=== PATIENT | male | born 1970 | race Caucasian/White ===

== ENCOUNTER 2023-11-26 10:42 | Emergency (ER) | payer OTHER, SELFPAY ==
--- NOTE | ~2023-11-26 | XR_ITS ---
EXAMINATION: XR elbow LT min 3V DATE: 11/26/2023 11:11 INDICATION: Left elbow pain, initial encounter TECHNIQUE: Anteroposterior, two oblique and lateral views of the left elbow were obtained. COMPARISON: None. FINDINGS: There is an acute, displaced fracture involving the lateral condyle of the distal humerus. The fracture fragment is rotated anteriorly. No additional fracture is identified. There is an elbow joint effusion IMPRESSION: 1. Displaced and rotated lateral condyle fracture of the distal humerus with elbow joint effusion. Reviewed, dictated and finalized at location B. GOODS PRESS HAND IMPRESSION: 1. Displaced and rotated lateral condyle fracture of the distal humerus with el bow joint effusion.
--- NOTE | ~2023-11-26 | XR_ITS ---
EXAMINATION: XR forearm LT 2V INDICATION: Left forearm pain TECHNIQUE: Two views of the left forearm are obtained on three radiographs. COMPARISON: None available FINDINGS: There is a displaced and rotated lateral condyle fracture of the distal humerus. No additio nal fracture is identified. There is soft tissue swelling of the elbow. IMPRESSION: 1. No acute fracture of the radius or ulna. 2. Displaced and rotated lateral condyle fracture at the distal humerus. Reviewed, dictated and finalized at location B. K CASHIER
--- NOTE | 2023-11-26 10:43 | ED.UPPEXIN ---
HPI - Extremity Injury (Upper) General Chief Complaint: Extremity Injury, Upper Stated Complaint: Injured left arm Time Seen by Provider: 11/26/23 10:43 Source: patient Mode of arrival: ambulatory Limitations: no limitations History of Present Illness HPI narrative: Patient is a 53-year-old male who presents with left forearm and elbow pain after falling down steps yesterday. Denies any bruising or obvious swelling but is painful to move in all directions. Denies any numbness, tingling weakness to hand. Denies hitting head on fall. Has been using ice, elevating, topical pain relief and Tylenol and ibuprofen. Related Data Allergies Allergy/AdvReac Type Severity Reaction Status Date / Time nickel Allergy Mild Rash Verified 11/26/23 10:53 Review of Systems Review of Systems: All systems reviewed & are unremarkable except as noted in HPI and below Constitutional: Constitutional: Denies body ache(s), Denies chills, Denies fatigue, Denies fever(s), Denies headache(s), Denies malaise and Denies weakness Eyes: Eyes: Denies blurry vision, Denies irritation and Denies loss of vision ENT: Denies otalgia, Denies headache(s), Denies nasal discharge, Denies sinus pain and Denies sore throat Cardiovascular: Cardiovascular: Denies chest pain, Denies irregular heart rhythm and Denies dyspnea Respiratory: Respiratory: Denies dyspnea Gastrointestinal: Gastrointestinal: Denies abdominal pain, Denies melena, Denies hematochezia, Denies diarrhea, Denies nausea and Denies vomiting Musculoskeletal: Musculoskeletal: Denies back pain, Denies myalgias and Reports arthralgias Integumentary/Breasts: Skin/Breast: Denies pruritus and Denies rash Neurologic: Denies headache(s), Denies loss of vision and Denies weakness Psychiatric: Psychiatric: Reports no additional psychiatric complaints Endocrine: Endocrine: Denies fatigue PMFSH Comments At time of signature, agree with nursing past medical, surgical, social and family history. There is no relevant family history pertinent to the presenting complaint. Exam Const: General: cooperative, healthy appearing, comfortable, no acute distress and well nourished Nutritional Appearance: well nourished Orientation/consciousness: patient oriented x3 Limitations: no limitations HENMT: Head: normal to inspection, normocephalic and atraumatic Ears: hearing grossly normal bilaterally and external ears normal Face/Nose/Sinus: Normal external nose present, normal facial exam and face symmetric Face and sinus: normal facial exam and face symmetric Mouth: Yes lip normal Eyes: General: appearance normal, both eyes and all related structures Alignment and Position: alignment normal and position normal Periorbital: periorbital findings normal Eyelids: eyelids normal Pupils: Equal, round and reactive pupils present EOM: EOMs intact bilaterally Neck: Neck: normal visual inspection, full ROM and supple Chest: Chest palpation & inspection: normal inspection of the chest Resp: Effort & Inspection: normal respiratory effort and able to speak in complete sentences Auscultation: clear to auscultation bilaterally Cardio: Rate: regular rate Rhythm: regular rhythm Heart sounds: S1 normal heart sound present and S2 normal heart sound present GI: Inspection: normal to inspection Skin: General skin exam: normal color and no rashes or lesions noted Neuro: General: patient oriented x3 and moves all extremities Cranial nerves: Yes Equal, round and reactive pupils present Speech: normal speech Gait exam (Neuro): Normal gait present Extrem: General: normal to inspection, full ROM and no edema Left upper extremity: shoulder/upper arm inspection abnormal and normal ROM; no tenderness and no swelling, elbow/forearm tenderness of the lateral epicondyle with resisted supination and with resisted pronation, abnormal ROM pain with active ROM with extension, with flexion, with pronation and with supination and distal pulses i
[2023-11-26 10:56] VITALS: BP 141/95; PULSE 83; RESP 16; TEMP 36.9; O2SAT 99
== END 2023-11-26 12:16 | disposition home or self-care (01) ==
PROVIDERS: Emergency Provider Nurse Practitioner Family
DX: S42.452A Displaced fracture of lateral condyle of left humerus, initial encounter for closed fracture (principal); W10.9XXA Fall (on) (from) unspecified stairs and steps, initial encounter
CPT/HCPCS: 29105; 73080; 73090; 99214; A4565; G0463

== ENCOUNTER 2023-12-02 00:49 | Day surgery (SDC) | payer OTHER, SELFPAY ==
[2023-11-30 09:36] VITALS: BMI 44.9
--- NOTE | 2023-11-30 09:43 | PC.NURSE ---
Report to the Outpatient Waiting Room, entrance under the green pavilion located off [facility], at time 0600 on date 12/02/23. Planned Procedure Time: 0730. Time changes happen often and if your time is changed the preop area will call you the afternoon before. - You and your visitor will be asked to self-screen and do not enter if you have any COVID symptoms. - A mask is optional within the hospital at this time. Patients may have clear liquids (water, carbonated beverages, clear teas, apple juice) until 3 hours prior to surgery with a maximum of 20 ounces. - No food from midnight until time of surgery Take the following medications with a SIP of water the morning of surgery: OXYCODONE DO NOT STOP ANY OF YOUR OTHER PRESCRIPTION MEDICATIONS PRIOR TO SURGERY ?EXCEPT THE FOLLOWING Medications to discontinue per physician: IBUPROFEN Date to take last dose: PER DR. ANN Please no make-up, nail mongolian, hairspray, perfume, deodorant, or body powder the day of surgery. No jewelry (including any body piercings) or valuables the day of surgery, leave them at home. Please take a shower or bath the night before, or the morning of, surgery with an antibacterial soap. Wear comfortable, loose fitting clothing. - Jewelry must be removed prior to entering the operating room. Rings and piercings that are not removed may be cut off. - The hospital will not accept responsibility for valuables. - Please leave all valuables, including medications, at home the day of surgery. If you are going home after surgery, a licensed concrete truck driver must drive you home. - NO public transportation without another adult if you receive anesthesia. - We recommend that an adult stay with you for 24 hours following discharge. - We also recommend that you do not drive, make important decision, drink alcoholic beverages, or take any drugs that were not prescribed by your health care provider for at least 24 hours after your discharge time. Follow any additional instructions given to you from your surgeon. If you or anyone in your household have experienced Covid symptoms in the past week, please notify your surgeon or the nurse liaison at the phone number below for possible testing. Telephone instructions given to PT Kassandra SHARIF and asked if any additional questions and then verbalized understanding. Patient advised to call surgeon office or pre surgery nurse liaison [phone] if any additional questions.
--- NOTE | 2023-12-01 10:31 | P.PNAN_ITS ---
Anes - Initial Pre Proc Eval Procedure: Operation Date: 12/02/23 07:30 Proposed Procedures p Open Reduction Internal Fixation Left Elbow Fracture - Jay Masters MD Date/Time: 12/01/23 10:31 Surgeon: Jay Masters MD Pre Op Diagnosis: left displaced and rotated condyle fx distal humer Patient Data Age: 53 Gender: M Height: 1.88 m Weight: 158.8 kg Allergies Allergy/AdvReac Type Severity Reaction Status Date / Time nickel Allergy Mild Rash Verified 11/30/23 09:35 Home Medications Medication Instructions Recorded Confirmed Type oxycodone 5 mg capsule 5 mg PO Q6H PRN pain #20 caps 11/29/23 11/30/23 Rx ibuprofen 600 mg tablet 600 mg PO QID PRN Pain 11/30/23 11/30/23 History Patient hx anesthesia problems: none Family hx anesthesia problems: none Results Review: All pre-operative results and documents have been reviewed as part of the pre- operative evaluation. 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 Informed Consent: The patient's anesthetic plan and its attendant risks and benefits were discussed with the patient/family/POA. Questions were solicited and answers provided to the satisfaction of the patient/family/POA.
[2023-12-02] VITALS (12 sets, daily range): BP systolic 124–160; BP diastolic 70–102; PULSE 79–91; RESP 12–20; TEMP 36.6–37.2; O2SAT 92–98
--- NOTE | ~2023-12-02 | XR_ITS ---
EXAMINATION: XR surgery orthopedic DATE: 12/02/2023 09:13 INDICATION: Fracture of capitellum of left humerus. TECHNIQUE: 7 intraoperative fluoroscopic views of the left elbow were obtained. I was not present. Fl uoroscopy exposure time was 13 seconds. COMPARISON: Left elbow radiographs 11/26/2023 FINDINGS: There is a fracture of capitellum of distal humerus in near-anatomic alignment status post open reduction internal fixation with 3 headless screws. IMPRESSION: 1. Fracture of capitellum of distal humerus in near-anatomic alignment status post open reduction int ernal fixation. Reviewed, dictated and finalized at location A. ERIOLOGIST FOOD IMPRESSION: 1. Fracture of capitellum of distal humerus in near-anatomic alignment status p ost open reduction internal fixation.
[2023-12-02] MEDS: KETOROLAC 15 MG/ML VIAL (*BKC) IV PUSH (06:45)
[2023-12-02] MEDS: ACETAMINOPHEN 500 MG TABLET 1000 MG PO (06:45)
[2023-12-02] MEDS: LACTATED RINGERS 1,000 ML 30 ML IV CONT (06:45)
--- NOTE | 2023-12-02 07:09 | WPDHPUPDATE1 ---
History and Physical Update Update Date/Time: 12/02/23 07:09 History and Physical has been reviewed, including an updated exam of the patient. There are NO changes in the patient's condition. Risks, benefits, and alternatives have been discussed and questions answered. Patient agrees to proceed with procedure.
[2023-12-02] MEDS: ceFAZolin 3 GM/D5W 100 ML 100 ML IVPB (07:29)
[2023-12-02] MEDS: BUPivacaine HCL 0.5% 10 ML AMP 30 ML INFILTRATE (08:07)
--- NOTE | 2023-12-02 10:06 | P.OP_ITS ---
Procedure Note - Detailed Date of Procedure 12/02/23 Pre-op Diagnosis left displaced and rotated condyle fx distal humer Post-op Diagnosis Same Procedure Performed Open reduction internal fixation left distal humerus capitellum fracture Surgeon Jay Masters MD Traffic Analysis Technician 1st delivery assistant Anesthesia General Indications gentleman fell on his left and sustained a left elbow capitellar fracture. Displacement rotation fracture noted. Fracture is intra-articular. Desires Operative treatment. Description of Procedure Patient identified in the preoperative holding. Informed consent given. Operative extremity marked. Patient received intravenous antibiotics. Patient brought to the operating room where underwent general anesthetic by anesthesia team. Positioned supine on operating room table. Time-out performed confirming the patient, site of the surgery and the plan. left arm prepped and draped usual sterile surgical fashion using a ChloraPrep skin solution. Hand and arm exsanguinated tourniquet inflated to 250 mmHg. Local anesthetic with 0.5% Marcaine to the left lateral elbow. Oblique incision made over the radiocapitellar joint with a 15 blade knife. Hemostasis controlled electrocautery. Fascia was then incised in line with skin incision. The fascia was then elevated anteriorly off the distal humerus to expose the capitellar fracture fragment. Care was taken to stay anterior to the lateral collateral ligament. Fragment was identified. The fracture was cleaned with a dental pick, rongeur and irrigation. Fracture was then reduced and provisionally pinned. Fixation achieved with 2.5 mm cannulated headless screws placed from the posterolateral humerus into the fracture fragment. Image intensification from reduction and placement of the hardware. The elbow was taken through range of motion and fracture noted be stable. There was no impingement. There is no radial fracture. Joint irrigated and suctioned. Fascia then repaired with 2-0 Vicryl interrupted suture. Subcutaneous tissue repaired with 3-0 Monocryl interrupted suture and skin repaired with 3-0 Monocryl running subcuticular stitch. Sterile dressing applied. tourniquet released. The patient was then woken from anesthesia, extubated and taken to the recovery room in stable condition. All sponge, needle, instrument counts were correct at the end of the case. Implants Arthrex 2.5 mm headless cannulated screws x3 Estimated Blood Loss 10 Tourniquet Time Total Tourniquet Time: 70 Drains No Packing No Pathology None sent Complications None Condition Stable Disposition PACU [facility] Billing Surgery - Charge Forward: Surgery Billing ([id number])
[2023-12-02] MEDS: fentaNYL CITRATE INJ (*CRX) 100 MCG/2 ML VIAL 25 MCG IV PUSH ×5 (10:27→11:11)
[2023-12-02] MEDS: oxyCODONE HCL (*CRX) 5 MG TAB IR PO (11:47)
== END 2023-12-02 12:42 | disposition home or self-care (01) ==
PROVIDERS: Visit Provider Orthopaedic Surgery
PROC: (CPT 24579; principal; 2023-12-02 07:30)
DX: S42.452A Displaced fracture of lateral condyle of left humerus, initial encounter for closed fracture (principal); I10 Essential (primary) hypertension; F32.A Depression, unspecified; E11.9 Type 2 diabetes mellitus without complications; E78.00 Pure hypercholesterolemia, unspecified; E66.01 Morbid (severe) obesity due to excess calories; Z68.42 Body mass index [BMI] 45.0-49.9, adult; Z79.891 Long term (current) use of opiate analgesic; Z85.3 Personal history of malignant neoplasm of breast; Z85.828 Personal history of other malignant neoplasm of skin; Z85.841 Personal history of malignant neoplasm of brain; Z86.79 Personal history of other diseases of the circulatory system; W10.8XXA Fall (on) (from) other stairs and steps, initial encounter
CPT/HCPCS: 24579; 99199; A9270; J0330; J0690; J1100; J1170; J1885; J2250; J2371; J2405; J2704; J3010; J7120

== ENCOUNTER 2023-12-13 09:23 | Outpatient (CLI) | payer OTHER, SELFPAY ==
--- NOTE | ~2023-12-13 | XR_ITS ---
EXAMINATION: XR elbow LT min 3V DATE: 12/13/2023 09:42 INDICATION: Left elbow fracture follow-up TECHNIQUE: Anteroposterior, oblique and lateral views of the left elbow were obtained. COMPARISON: 11/26/2023 FINDINGS: There has been interval internal fixation of the previously described lateral condyle fract ure of the distal humerus. Alignment appears normal. Minimal calcified callus is seen at the fracture site. A posterior splint is in place. No definite persistent number joint effusion is identified. No additional fracture is seen. IMPRESSION: 1. Interval internal fixation of the previously described lateral condyle fracture now in anatomic al ignment with early healing. Reviewed, dictated and finalized at location B. PMENT SERVICE ENGINEER IMPRESSION: 1. Interval internal fixation of the previously described lateral condyle fract ure now in anatomic alignment with early healing.
== END 2023-12-13 09:24 | disposition home or self-care (01) ==
LOC: CHSIMG 09:24
PROVIDERS: Visit Provider Orthopaedic Surgery
DX: S42.452D Displaced fracture of lateral condyle of left humerus, subsequent encounter for fracture with routine healing (principal)
CPT/HCPCS: 73080

== ENCOUNTER 2024-02-07 08:16 | Outpatient (CLI) | payer OTHER, SELFPAY ==
--- NOTE | ~2024-02-07 | XR_ITS ---
XR elbow LT min 3V 02/07/2024 08:45 Indication: Follow-up surgery to left elbow Procedure: 4 views left elbow Comparison: 12/13/2023 Findings: There screws transfixing the lateral condyle of the humerus. There is as a possible nondisp laced radial head fracture. Moderate joint effusion. Impression: 1: Healing fracture left humeral lateral condyle internally fixed with 3 screws. 2: Possible nondisplaced radial head fracture. Reviewed, dictated and finalized at location B. Impression: 1: Healing fracture left humeral lateral condyle internally fixed with 3 screws . 2: Possible nondisplaced radial head fracture.
== END 2024-02-07 08:17 | disposition home or self-care (01) ==
LOC: CHSLAB 08:17
PROVIDERS: PCP Family Medicine; Visit Provider Family Medicine
DX: S42.452D Displaced fracture of lateral condyle of left humerus, subsequent encounter for fracture with routine healing (principal); M25.522 Pain in left elbow
CPT/HCPCS: 73080